=== PATIENT | female | born 1990 | race Caucasian/White ===

== ENCOUNTER 2022-11-06 19:32 | Emergency (ER) | payer OTHER, SELFPAY ==
[2022-11-06 19:40] VITALS: BP 120/52; PULSE 79; RESP 14; TEMP 36.8; O2SAT 100
--- NOTE | 2022-11-06 19:40 | ED.CHESTPAIN ---
HPI - Chest Pain General Chief Complaint: Chest Pain Stated Complaint: chest pain on inhalation Time Seen by Provider: 11/06/22 19:40 Source: patient Mode of arrival: ambulatory Limitations: no limitations History of Present Illness HPI narrative: 32-year-old female with history of heart arrhythmia and mitral valve prolapse presents with complaint of left-sided intermittent chest pain starting today. States while at work today passing medication she felt short of breath and lightheaded. Patient states that she came here tonight for an EKG. She currently does not have chest pain at this time but states that it comes and goes every couple of minutes. 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 She also states that she has a history of indigestion stopped taking her Nexium months ago and switched herself to Tums. States that chest pain is not similar to her pain with indigestion. Also reports that she has been taking licks of baking soda today to see if it helped pain and has not. All systems reviewed and negative except as noted above. Related Data Allergies Allergy/AdvReac Type Severity Reaction Status Date / Time Sulfa (Sulfonamide Allergy Intermediate Hives Verified 11/06/22 20:04 Antibiotics) Review of Systems Review of Systems: CONSTITUTIONAL: Denies fever, chills, or sweats. EYES: Denies visual changes, redness, or discharge. ENT: Denies rhinorrhea, congestion, sore throat, or otalgia. CARDIOVASCULAR: Reports left-sided chest pain. Denies palpitations, or edema. RESPIRATORY: Denies cough or dyspnea. GASTROINTESTINAL: Denies abdominal pain, nausea, vomiting, or diarrhea. GENITOURINARY: Denies dysuria or hematuria. SKIN: Denies rash or itching. MUSCULOSKELETAL: Denies back pain, joint pain, or myalgia. NEUROLOGIC: Denies headache, numbness, or weakness. PSYCHIATRIC: Denies anxiety or depression. All other systems reviewed are negative, except as documented in HPI. PMFSH Comments At time of signature, agree with nursing past medical, surgical, social and family history. There is no relevant family history pertinent to the presenting complaint. Exam Narrative: GENERAL: This is a well-nourished, well-developed patient, in no apparent distress. HEAD: normocephalic, atraumatic. EYES: PERRL. Sclera clear/white. Vision is grossly intact. EARS: External ears normal NOSE: External nose normal NECK: Neck supple, non-tender without lymphadenopathy, masses or thyromegaly. CARDIOVASCULAR: Regular rate and rhythm without murmurs, gallops, or rubs. RESPIRATORY: Clear to auscultation. Breath sounds equal bilaterally. No wheezes, rales, or rhonchi. SKIN: warm, Dry, intact with no suspicious lesions or rash, good texture and turgor. NEURO: awake, alert, and oriented to person, place and time. There were no obvious focal neurologic abnormalities. EXTREMITIES: No joint tenderness, effusion, or edema noted. Course Course Level of Care: Express Care Visit Vital Signs Vital signs: reviewed MDM - Chest Pain MDM Narrative Medical decision making narrative: EKG normal sinus rhythm. Heart rate 85. no old EKG for comparison. Recommended patient go to the ER for further evaluation of her chest pain. She refused a chest x-ray as she did not feel that was necessary. She is refusing transfer to ER. States that she will follow-up with her primary care physician on Tuesday. States if the EKG is not showing anything I do not feel that anything is going on that is serious . Explained to patient that she may need labs, also possible chest CT to rule all other possibilities that could be causing pain. She continued to refuse transfer to ER. Risks discussed. Patient is aware of diagnosis, understands and agrees to treatment plan. Anticipatory guidance given. Patient agrees to follow-up as dir
--- NOTE | 2022-11-06 19:52 | ECG_ITS ---
Measurements Intervals [place] Rate: 85 P: 49 CA: 148 QRS: 51 QRSD: 79 T: 41 QT: 354 QTc: 422 Interpretive Statements SINUS RHYTHM POSSIBLE LEFT ATRIAL ENLARGEMENT BASELINE WANDER- III, AVR, AVL, AVF, V1 BORDERLINE ECG NO PREVIOUS ECG AVAILABLE FOR COMPARISON Electronically Signed On 11-07-2022 12:57:17 CDT by Cristino Mar D.O.
== END 2022-11-06 20:07 | disposition left against medical advice (07) ==
PROVIDERS: Emergency Provider Nurse Practitioner Family; PCP Internal Medicine
DX: R07.9 Chest pain, unspecified (principal); I34.1 Nonrheumatic mitral (valve) prolapse; K21.9 Gastro-esophageal reflux disease without esophagitis; F41.9 Anxiety disorder, unspecified
CPT/HCPCS: 93005; 99213; G0463